=== PATIENT | female | born 1945 | race Caucasian/White ===

== ENCOUNTER → 2017-11-15 | Outpatient (CLI) | payer MEDICARE ==
[~2017-11-15] MED LIST: AMITRIPTYLINE100 MG PO; AMLODIPINE BESY10 MG PO; ATORVASTATIN CA20 MG PO; FUROSEMIDE20 MG PO; KLONOPIN1 MG PO; LISINOPRIL-HCT1 EACH PO; METOPROLOL SUCC50 MG PO; METOPROLOL TAR100 MG PO; OMEPRAZOLE40 MG PO; PROMETHAZINE HC50 MG PO; SILENOR3 MG PO; SPIRONOLACTONE25 MG PO; TIZANIDINE HCL4 MG PO; WARFARIN SODIUM2 MG PO; WARFARIN SODIUM3 MG PO
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
== END ==
LOC: MRI 16:32
PROVIDERS: ATTEND Student in an Organized Health Care Education/Training Program
DX: M54.5 Low back pain (principal); M54.17 Radiculopathy, lumbosacral region
CPT/HCPCS: 72148

== ENCOUNTER → 2018-04-10 | Outpatient (CLI) | payer MEDICARE ==
--- NOTE | 2018-04-10 16:42 | Diagnostic Imaging Report ---
EXAM: CT Chest WITHOUT contrast 04/10/2018 3:00 PM INDICATION: Cough. Personal history of tobacco use. Sleep apnea. Hypertension. Gastroesophageal reflux disease. Chronic bronchitis. History of blood clot. COMPARISON: None TECHNIQUE: Chest was scanned utilizing a multidetector helical scanner from the lung apex through the level of the adrenal glands without administration of IV contrast. Absence of intravenous contrast decreases sensitivity for detection of lymphadenopathy and vascular pathology. Coronal and sagittal reformations were obtained. Routine protocol was performed. IV CONTRAST: None RADIATION DOSE: Total DLP: 475.22 mGy*cm Estimated effective dose: (DLP x 0.014 x size factor) mSv COMPLICATIONS: None FINDINGS: LINES/ TUBES: None. LUNGS AND AIRWAYS: There are mild chronic appearing changes in the lungs with regions of what appear to be scarring/atelectasis most pronounced in the posterior lower lobes. There is no consolidated pneumonia or suspicious pulmonary nodule. Airways are normal. PLEURA: The pleural spaces are clear. HEART AND MEDIASTINUM: The thyroid gland is normal. Small nonspecific mediastinal lymph nodes. The heart is normal in size. There is no pericardial effusion. UPPER ABDOMEN: Surgical clips in the gallbladder fossa. BONES: The visualized bony thorax is within normal limits. SOFT TISSUES: Unremarkable. IMPRESSION: Mild chronic appearing changes in the lungs with regions of what appear to be scarring/atelectasis most pronounced in the posterior lower lobes. No consolidated pneumonia or suspicious pulmonary nodule. Signed by: Dr. Isaac Boothe M.D. on 04/10/2018 4:38 PM
== END ==
LOC: CT 15:47
PROVIDERS: ATTEND Internal Medicine Critical Care Medicine
DX: J42 Unspecified chronic bronchitis (principal); J32.9 Chronic sinusitis, unspecified; G47.00 Insomnia, unspecified; F51.8 Other sleep disorders not due to a substance or known physiological condition; I10 Essential (primary) hypertension; F32.9 Major depressive disorder, single episode, unspecified; K21.9 Gastro-esophageal reflux disease without esophagitis; Z87.891 Personal history of nicotine dependence
CPT/HCPCS: 36415; 71250; 84443

== ENCOUNTER 2020-11-15 13:08 | Inpatient (IN) | payer MEDICARE ==
[~2020-11-15] VITALS: Ht 160 cm; Wt 83.9 kg
[2020-11-15] MEDS ORDERED: MORPHINE SULFATE INJ 4 MG/ML INJ 1ML IV STA (13:44)
[2020-11-15] MEDS ORDERED: SODIUM CHLORIDE 0.9% 1000ML 1,000 ML IV STA (13:44)
[2020-11-15] MEDS ORDERED: PANTOPRAZOLE 40 MG 10ML VIAL IV STA (13:44)
[2020-11-15] MEDS ORDERED: ONDANSETRON HCL INJ 2MG/ML 2ML 2 MG/ML VIAL IV STA (13:44)
[2020-11-15 13:53] LABS: BASOPHILS # (AUTO) 0.1 (0.0-0.1); BASOPHILS % 0.4 % (0.0-1.0); EOSINOPHILS # (AUTO) 0.1 (0.0-0.4); EOSINOPHILS % 0.5 % (0.0-6.0); HEMATOCRIT 43.3 % (34.2-44.1); HEMOGLOBIN 14.6 g/dL (12.0-16.0); LYMPHOCYTES # (AUTO) 2.9 (1.0-3.2); LYMPHOCYTES % 21.3 % (18.0-39.1); MEAN CORPUSCULAR HEMOGLOBIN 30.6 pg (28-32); MEAN CORPUSCULAR HGB CONC 33.7 g/dL (31-35); MEAN CORPUSCULAR VOLUME 90.8 fL (81-99); MONOCYTES # (AUTO) 0.9 (0.2-0.8); MONOCYTES % 6.9 % (4.4-11.3); NEUTROPHILS # (AUTO) 9.6 (2.1-6.9); NEUTROPHILS % 70.4 % (38.7-80.0); PLATELET COUNT 204 x10e3/uL (140-360); RED BLOOD COUNT 4.77 x10e6/uL (3.6-5.1); RED CELL DISTRIBUTION WIDTH 12.9 % (11.7-14.4)
[2020-11-15 14:07] LABS: INR 0.86; PROTHROMBIN TIME 12.3 seconds (11.9-14.5)
[2020-11-15 14:12] LABS: ALBUMIN 4.7 g/dL (3.5-5.0); ALBUMIN/GLOBULIN RATIO 1.3 (0.8-2.0); CALCIUM 9.6 mg/dL (8.4-10.2); CREATININE, SERUM 1.6 mg/dL (0.57-1.11)
[2020-11-15 14:19] LABS: CREATINE KINASE MB 1.2 ng/mL (0-5.0)
[2020-11-15 14:22] LABS: CLARITY,URINE HAZY (CLEAR); COLOR,URINE YELLOW (YELLOW)
[2020-11-15 14:23] LABS: KETONES,URINE 2+ (NEGATIVE); LEUKOCYTE ESTERASE ,URINE NEGATIVE (NEGATIVE); NITRITE,URINE NEGATIVE (NEGATIVE); PROTEIN,URINE DIPSTICK 2+ (NEGATIVE); URINE UROBILINOGEN 0.2 mg/dL (0.2 - 1)
[2020-11-15 14:29] LABS: AMORPHOUS SEDIMENT,URINE FEW (FEW); BACTERIA,URINE FEW /HPF; EPITHELIAL CELLS,URINE FEW /LPF; MUCUS,URINE FEW (RARE)
[2020-11-15] MEDS ORDERED: CEFTRIAXONE SOD 1 GM/50 ML BAG IV SCH (15:15)
[2020-11-15] MEDS: CEFTRIAXONE SOD 1 GM in SODIUM CHLORIDE 0.9% 50ML 50 ML IV SCH (15:30)
[2020-11-15] MEDS ORDERED: METRONIDAZOLE 500MG/NS 100ML 100 ML IV SCH (17:30)
[2020-11-15] MEDS: SODIUM CHLORIDE 0.9% 1000ML 1,000 ML IV SCH (19:53)
[2020-11-15 20:00] VITALS: BP 165/101
[2020-11-15] MEDS: ONDANSETRON HCL INJ 2MG/ML 2ML 2 MG/ML VIAL IV PRN (20:01)
[2020-11-15] MEDS: MORPHINE SULFATE INJ 4 MG/ML INJ 1ML IV PRN (20:06)
[2020-11-15 21:14] LABS: CREATINE KINASE MB 1.4 ng/mL (0-5.0)
[2020-11-16] VITALS (9 sets, daily range): BP systolic 116–192; BP diastolic 73–92
[2020-11-16] MEDS: ONDANSETRON HCL INJ 2MG/ML 2ML 2 MG/ML VIAL IV PRN ×3 (00:11→16:38)
[2020-11-16] MEDS: MORPHINE SULFATE INJ 4 MG/ML INJ 1ML IV PRN (00:20)
[2020-11-16] MEDS: METRONIDAZOLE 500MG/NS 100ML 100 ML IV SCH ×5 (01:10→19:37)
[2020-11-16] MEDS: SODIUM CHLORIDE 0.9% 1000ML 1,000 ML IV SCH (03:46)
[2020-11-16] MEDS: CEFTRIAXONE SOD 1 GM in SODIUM CHLORIDE 0.9% 50ML 50 ML IV SCH ×2 (03:46→16:38)
[2020-11-16 05:19] LABS: BASOPHILS % 0.4 % (0.0-1.0); EOSINOPHILS % 0.3 % (0.0-6.0); HEMATOCRIT 38.5 % (34.2-44.1); HEMOGLOBIN 12.9 g/dL (12.0-16.0); LYMPHOCYTES % 21.1 % (18.0-39.1); MEAN CORPUSCULAR HEMOGLOBIN 30.4 pg (28-32); MEAN CORPUSCULAR HGB CONC 33.5 g/dL (31-35); MEAN CORPUSCULAR VOLUME 90.8 fL (81-99); MONOCYTES # (AUTO) 0.8 (0.2-0.8); MONOCYTES % 8.1 % (4.4-11.3); NEUTROPHILS # (AUTO) 6.7 (2.1-6.9); NEUTROPHILS % 69.7 % (38.7-80.0); PLATELET COUNT 157 x10e3/uL (140-360); RED BLOOD COUNT 4.24 x10e6/uL (3.6-5.1); RED CELL DISTRIBUTION WIDTH 13.2 % (11.7-14.4)
[2020-11-16 05:34] LABS: ALBUMIN 3.8 g/dL (3.5-5.0); ALBUMIN/GLOBULIN RATIO 1.2 (0.8-2.0); ANION GAP 19.9 mmol/L (8-16); CALCIUM 8.3 mg/dL (8.4-10.2); CREATININE, SERUM 1.31 mg/dL (0.57-1.11); POTASSIUM 3.9 mmol/L (3.5-5.1)
[2020-11-16 06:49] LABS: CREATINE KINASE MB 1.2 ng/mL (0-5.0)
[2020-11-16] MEDS ORDERED: HYDRALAZINE HCL 20 MG/ML VIAL IV PRN (12:15)
[2020-11-16] MEDS ORDERED: ACETAMINOPHEN 325 MG TAB PO PRN (12:15)
[2020-11-16] MEDS ORDERED: XARELTO20 MG PO (12:58)
[2020-11-16] MEDS ORDERED: ZOLPIDEM TARTRAT5 MG PO (12:58)
[2020-11-16] MEDS ORDERED: PENTAZOCINE-NA1 EACH PO (12:58)
[2020-11-16] MEDS ORDERED: TIZANIDINE HCL 4 MG TAB PO PRN (13:15)
[2020-11-16] MEDS ORDERED: CLONAZEPAM 0.5 MG TAB PO PRN (14:00)
[2020-11-16 15:27] LABS: CREATINE KINASE MB 1.5 ng/mL (0-5.0)
[2020-11-16] MEDS: PANTOPRAZOLE SOD 40 MG TABEC PO SCH (16:38)
[2020-11-16] MEDS ORDERED: ZOLPIDEM TARTRATE 5 MG TAB PO PRN (21:00)
[2020-11-16] MEDS: NIFEDIPINE CR 30 MG TAB PO SCH ×2 (21:48→23:55)
[2020-11-16] MEDS: PROMETHAZINE 25MG/ NS 50ML (IV) IV PRN (21:49)
[2020-11-17] VITALS (9 sets, daily range): BP systolic 110–179; BP diastolic 69–107
[2020-11-17] MEDS: METRONIDAZOLE 500MG/NS 100ML 100 ML IV SCH (01:45)
[2020-11-17] MEDS ORDERED: SODIUM CHLORIDE 0.9% 250ML 250 ML ONE (01:52)
[2020-11-17] MEDS: PROMETHAZINE 25MG/ NS 50ML (IV) IV PRN ×2 (03:54→13:40)
[2020-11-17] MEDS: CEFTRIAXONE SOD 1 GM in SODIUM CHLORIDE 0.9% 50ML 50 ML IV SCH ×2 (04:30→15:12)
[2020-11-17] MEDS ORDERED: MORPHINE SULFATE INJ 4 MG/ML INJ 1ML IV PRN (05:00)
[2020-11-17 05:36] LABS: BASOPHILS % 0.3 % (0.0-1.0); HEMATOCRIT 37.3 % (34.2-44.1); HEMOGLOBIN 12.6 g/dL (12.0-16.0); LYMPHOCYTES # (AUTO) 1.4 (1.0-3.2); LYMPHOCYTES % 11.8 % (18.0-39.1); MEAN CORPUSCULAR HEMOGLOBIN 31.3 pg (28-32); MEAN CORPUSCULAR HGB CONC 33.8 g/dL (31-35); MEAN CORPUSCULAR VOLUME 92.6 fL (81-99); MONOCYTES # (AUTO) 0.8 (0.2-0.8); MONOCYTES % 6.6 % (4.4-11.3); NEUTROPHILS # (AUTO) 9.4 (2.1-6.9); NEUTROPHILS % 80.2 % (38.7-80.0); PLATELET COUNT 127 x10e3/uL (140-360); RED BLOOD COUNT 4.03 x10e6/uL (3.6-5.1); RED CELL DISTRIBUTION WIDTH 13.2 % (11.7-14.4)
[2020-11-17 05:59] LABS: ALBUMIN 3.9 g/dL (3.5-5.0); ALBUMIN/GLOBULIN RATIO 1.2 (0.8-2.0); ANION GAP 20.9 mmol/L (8-16); CALCIUM 8.9 mg/dL (8.4-10.2); CREATININE, SERUM 1.11 mg/dL (0.57-1.11); POTASSIUM 3.9 mmol/L (3.5-5.1)
[2020-11-17] MEDS ORDERED: FLUCONAZOLE 100 MG/NS 50 ML 50 ML IV SCH (08:45)
[2020-11-17] MEDS: ATORVASTATIN 10 MG TAB PO SCH (08:52)
[2020-11-17] MEDS: PANTOPRAZOLE SOD 40 MG TABEC PO SCH ×2 (08:52→17:16)
[2020-11-17] MEDS: RIVAROXABAN 20 MG TABLET PO SCH (08:52)
[2020-11-17] MEDS: FUROSEMIDE 20 MG TAB PO SCH (08:52)
[2020-11-17] MEDS: NIFEDIPINE CR 30 MG TAB PO SCH ×2 (08:53→17:16)
[2020-11-17] MEDS ORDERED: ACETAMINOPHEN/CODEINE 300MG - 30MG TAB PO PRN (15:45)
[2020-11-17] MEDS: CARVEDILOL 12.5 MG TAB PO SCH (17:42)
[2020-11-18 01:01] VITALS: BP 126/84
[2020-11-18] MEDS: CEFTRIAXONE SOD 1 GM in SODIUM CHLORIDE 0.9% 50ML 50 ML IV SCH (03:54)
[2020-11-18 04:43] VITALS: BP 124/65
[2020-11-18 05:03] LABS: BASOPHILS # (AUTO) 0.1 (0.0-0.1); BASOPHILS % 0.4 % (0.0-1.0); EOSINOPHILS % 0.1 % (0.0-6.0); HEMATOCRIT 38.8 % (34.2-44.1); HEMOGLOBIN 13.1 g/dL (12.0-16.0); LYMPHOCYTES # (AUTO) 2.1 (1.0-3.2); LYMPHOCYTES % 15.3 % (18.0-39.1); MEAN CORPUSCULAR HEMOGLOBIN 30.7 pg (28-32); MEAN CORPUSCULAR HGB CONC 33.8 g/dL (31-35); MEAN CORPUSCULAR VOLUME 90.9 fL (81-99); MONOCYTES % 7.4 % (4.4-11.3); NEUTROPHILS # (AUTO) 10.2 (2.1-6.9); PLATELET COUNT 153 x10e3/uL (140-360); RED BLOOD COUNT 4.27 x10e6/uL (3.6-5.1); RED CELL DISTRIBUTION WIDTH 13.2 % (11.7-14.4)
[2020-11-18 05:25] LABS: ALBUMIN 4.2 g/dL (3.5-5.0); ALBUMIN/GLOBULIN RATIO 1.3 (0.8-2.0); ANION GAP 19.4 mmol/L (8-16); CALCIUM 9.5 mg/dL (8.4-10.2); CREATININE, SERUM 1.12 mg/dL (0.57-1.11); MAGNESIUM 2.1 MG/DL (1.3-2.1); POTASSIUM 3.4 mmol/L (3.5-5.1)
[2020-11-18] MEDS: ONDANSETRON HCL INJ 2MG/ML 2ML 2 MG/ML VIAL IV PRN (05:30)
[2020-11-18 07:59] VITALS: BP 126/66
[2020-11-18 09:00] VITALS: BP 126/66
[2020-11-18] MEDS: PANTOPRAZOLE SOD 40 MG TABEC PO SCH (09:37)
[2020-11-18] MEDS: FUROSEMIDE 20 MG TAB PO SCH (09:37)
[2020-11-18] MEDS: CARVEDILOL 12.5 MG TAB PO SCH (09:37)
[2020-11-18] MEDS: NIFEDIPINE CR 30 MG TAB PO SCH (09:38)
[2020-11-18] MEDS: ATORVASTATIN 10 MG TAB PO SCH (09:38)
[2020-11-18] MEDS: RIVAROXABAN 20 MG TABLET PO SCH (09:38)
[2020-11-18] MEDS ORDERED: LACTULOSE SYRUP 20 GM/30 ML UDC PO PRN (11:30)
[2020-11-18 11:56] VITALS: BP 115/68
[2020-11-18] MEDS ORDERED: POLYETHYLENE GLYCOL 3350 17 GM PACK PO SCH (12:00)
[2020-11-18] MEDS ORDERED: CEFUROXIME250 MG PO (14:51)
[2020-11-18] MEDS ORDERED: DOCUSATE SODIUM 100 MG CAP PO SCH (15:00)
== END 2020-11-18 16:06 | disposition home or self-care (01) | DRG 392 ==
LOC: ER 13:45 → ERHOLD 17:33 → MED/SURG2 19:32
PROVIDERS: ADMIT Internal Medicine; ATTEND Internal Medicine
DX: R10.13 Epigastric pain (principal); I50.22 Chronic systolic (congestive) heart failure; Z09 Encounter for follow-up examination after completed treatment for conditions other than malignant neoplasm; Z86.711 Personal history of pulmonary embolism; F41.9 Anxiety disorder, unspecified; I11.0 Hypertensive heart disease with heart failure; F32.9 Major depressive disorder, single episode, unspecified; E66.9 Obesity, unspecified; Z68.32 Body mass index [BMI] 32.0-32.9, adult; E78.5 Hyperlipidemia, unspecified; I25.10 Atherosclerotic heart disease of native coronary artery without angina pectoris; E11.9 Type 2 diabetes mellitus without complications; Z90.49 Acquired absence of other specified parts of digestive tract; D75.82 Heparin induced thrombocytopenia (HIT); Z20.822 Contact with and (suspected) exposure to COVID-19; Z87.891 Personal history of nicotine dependence; K57.30 Diverticulosis of large intestine without perforation or abscess without bleeding; K83.8 Other specified diseases of biliary tract
CPT/HCPCS: 36415; 71045; 74176; 80053; 81001; 82150; 82550; 82553; 83605; 83690; 83735; 83880; 84484; 85025; 85610; 85730; 87040; 87086; 93005; 93306; 97139; 99284; J0360; J0696; J1450; J2270; J2405; J2550; J7030; J7050; U0002

== ENCOUNTER 2021-06-12 06:08 | Emergency (ER) | payer MEDICARE ==
[~2021-06-12] VITALS: Ht 160 cm; Wt 83.9 kg
[~2021-06-12 06:08] MED LIST changes: +CEFUROXIME250 MG PO; +PENTAZOCINE-NA1 EACH PO; +XARELTO20 MG PO; +ZOLPIDEM TARTRAT5 MG PO
[2021-06-12] MEDS ORDERED: ONDANSETRON HCL INJ 2MG/ML 2ML 2 MG/ML VIAL IV STA (06:15)
[2021-06-12 06:44] LABS: BASOPHILS % 0.2 % (0.0-1.0); HEMATOCRIT 43.1 % (34.2-44.1); HEMOGLOBIN 14.3 g/dL (12.0-16.0); LYMPHOCYTES # (AUTO) 1.5 (1.0-3.2); LYMPHOCYTES % 24.4 % (18.0-39.1); MEAN CORPUSCULAR HEMOGLOBIN 29.4 pg (28-32); MEAN CORPUSCULAR HGB CONC 33.2 g/dL (31-35); MEAN CORPUSCULAR VOLUME 88.7 fL (81-99); MONOCYTES # (AUTO) 0.7 (0.2-0.8); MONOCYTES % 11.9 % (4.4-11.3); NEUTROPHILS # (AUTO) 3.8 (2.1-6.9); NEUTROPHILS % 63.2 % (38.7-80.0); PLATELET COUNT 124 x10e3/uL (140-360); RED BLOOD COUNT 4.86 x10e6/uL (3.6-5.1); RED CELL DISTRIBUTION WIDTH 13.6 % (11.7-14.4)
[2021-06-12] MEDS ORDERED: SODIUM CHLORIDE 0.9% 1000ML 1,000 ML IV SCH (06:45)
[2021-06-12] MEDS ORDERED: ACETAMINOPHEN 325 MG TAB PO ONE (07:00)
[2021-06-12 07:03] LABS: ALBUMIN 3.7 g/dL (3.5-5.0); ANION GAP 18.3 mmol/L (8-16); CALCIUM 8.8 mg/dL (8.4-10.2); CREATININE, SERUM 1.17 mg/dL (0.57-1.11); POTASSIUM 3.3 mmol/L (3.5-5.1)
[2021-06-12] MEDS ORDERED: ACETAMINOPHEN 325 MG TAB ONE (07:06)
[2021-06-12] MEDS ORDERED: HALOPERIDOL LACTATE 5 MG/ML VIAL IV ONE (07:15)
[2021-06-12] MEDS ORDERED: IOPAMIDOL 370 MG/ML 200 ML INFUS..BTL INJ ONE (07:23)
[2021-06-12] MEDS ORDERED: SODIUM CHLORIDE 0.9% 50ML 50 ML ONE (07:23)
[2021-06-12] MEDS ORDERED: CASIRIVIMAB/IMDEVIMAB 10 ML in SODIUM CHLORIDE 0.9% 100 ML IV ONE (08:00)
[2021-06-12] MEDS ORDERED: PROMETHAZINE12.5 M1 PO (09:16)
[2021-06-12 09:46] VITALS: BP 182/77
== END 2021-06-12 09:45 | disposition home or self-care (01) ==
LOC: ER 06:16
DX: U07.1 COVID-19 (principal); I10 Essential (primary) hypertension; Z88.8 Allergy status to other drugs, medicaments and biological substances
CPT/HCPCS: 36415; 71045; 74177; 80053; 83605; 83690; 84484; 85025; 87040; 99285; C9113; J1630; J2405; J7030; J7050; Q9967; U0002; 93005